=== PATIENT | male | born 1985 | race Caucasian/White ===

== ENCOUNTER 2024-11-01 15:36 | Inpatient (IN) | payer SELFPAY ==
[2024-11-01 16:02] VITALS: BMI 33.5
[2024-11-01] MEDS ORDERED: Ondansetron PF 4 MG/2 ML Vial IVP PRN (16:44)
[2024-11-01] MEDS ORDERED: Bisacodyl 5 MG TAB PO PRN (16:44)
[2024-11-01] MEDS ORDERED: Acetaminophen 650 MG Suppository PR PRN (16:44)
[2024-11-01] MEDS ORDERED: Senokot S 8.6-50 MG TAB PO PRN (16:44)
[2024-11-01] MEDS ORDERED: Acetaminophen 325 MG TAB PO PRN (16:44)
[2024-11-01] MEDS ORDERED: Bisacodyl 10 MG SUPP PR PRN (16:44)
[2024-11-01] MEDS ORDERED: Morphine 2 MG/ML VIAL SLOW IVP PRN ×2 (16:46→16:51)
[2024-11-01] MEDS ORDERED: Glucagon 1 MG/ML KIT IM PRN (17:06)
[2024-11-01] MEDS ORDERED: Dextrose 50% Abboject 50 ML SYRINGE SLOW IVP PRN (17:06)
[2024-11-01] MEDS ORDERED: Dextrose 5% in Water 1,000 ML IV PRN (17:06)
[2024-11-01] MEDS: Calcium Gluc 4.6 MEQ/10 ML (100 MG/ML) SLOW IVP ONE (17:36)
[2024-11-01] MEDS: CALCIUM GLUC 1 GM/NS 50 ML 1 GM in Premix 1 BAG IVPB SCH (17:37)
[2024-11-01] MEDS: traMADol HCl 50 MG TAB PO PRN (17:43)
[2024-11-01 19:04] LABS: Anion Gap 13 mmol/L (10-20); BUN (Urea Nitrogen) 48 mg/dL (8.9-20.6); Calc. Creatinine Clearance 52 mL/min (70-130); Calcium 9.1 mg/dL (7.8-10.44); Carbon Dioxide 24 mmol/L (22-29); Chloride 109 mmol/L (98-107); Estimated GFR 28; Glucose 115 mg/dL (70-105); Potassium 5.1 mmol/L (3.5-5.1); Sodium 141 mmol/L (136-145)
[2024-11-01] MEDS: Gabapentin 300 MG CAP PO SCH (20:21)
[2024-11-01] MEDS: Glimepiride 4 MG TAB PO SCH (20:22)
[2024-11-01] MEDS: Atorvastatin Calcium 40 MG TAB PO SCH (20:22)
[2024-11-01] MEDS: Heparin 5,000 UNITS/ML VIAL SC SCH (20:23)
[2024-11-01] MEDS ORDERED: Glimepiride 4 MG TAB PO SCH (21:00)
[2024-11-02 00:52] LABS: Amphetamine Not Detected (NotDetected); Barbiturates Screen Not Detected (NotDetected); Benzodiazepine Screen Not Detected (NotDetected); Cocaine Metabolite Screen Not Detected (NotDetected); Methadone Not Detected (NotDetected); Methamphetamine Not Detected (NotDetected); Opiate Screen Not Detected (NotDetected); Oxycodone Screen Not Detected (NotDetected); Phencyclidine (PCP) Not Detected (NotDetected); THC/Cannabinoid Screen Not Detected (NotDetected); Tricyclic Screen Not Detected (NotDetected)
[2024-11-02] MEDS: Albumin 25% 25 GM (100 mL) BOT IVPB SCH (01:00)
[2024-11-02 04:49] LABS: #Basophils 0.04 10x3/uL (0.0-0.2); %Basophils 0.5 % (0.0-1.0); %Eosinophils 3.6 % (0.0-10.0); %Lymphocytes 11.8 % (21.0-51.0); %Monocytes 7.6 % (0.0-10.0); %Neutrophils 76.1 % (42.0-75.0); Hematocrit 38.2 % (42.0-52.0); Hemoglobin 11.6 g/dL (14.0-18.0); Mean Corpuscular HGB CONC 30.4 g/dL (32.0-36.0); Mean Corpuscular Hemoglobin 25.2 pg (27.0-31.0); Mean Corpuscular Volume 82.9 fL (78.0-98.0); Platelet Count 197 10x3/uL (130-400); RBC Distribution Width 18.3 % (11.5-14.5); Red Blood Cell (RBC) Count 4.61 mill/uL (4.70-6.10)
[2024-11-02 05:03] LABS: Hemoglobin A1c 6.9 % (4.0-6.0)
[2024-11-02 05:28] LABS: ALT (SGPT) 14 U/L (8-55); AST (SGOT) 14 U/L (5-34); Albumin 3.6 g/dL (3.5-5.0); Alkaline Phosphatase 120 U/L (40-110); Anion Gap 14 mmol/L (10-20); BUN (Urea Nitrogen) 41 mg/dL (8.9-20.6); Bilirubin, Direct 0.4 mg/dL (0.1-0.3); Bilirubin, Total 0.7 mg/dL (0.2-1.2); Calc. Creatinine Clearance 54 mL/min (70-130); Carbon Dioxide 23 mmol/L (22-29); Cardiac Risk 2.3 (Less than 4.5); Chloride 109 mmol/L (98-107); Cholesterol 64 mg/dl (< 200 Desired); Estimated GFR 29; Glucose 54 mg/dL (70-105); HDL Cholesterol 28 mg/dL (>60 Neg Risk); LDL Cholesterol, Calculated 25 mg/dL; Magnesium 1.5 mg/dL (1.6-2.6); Potassium 4.8 mmol/L (3.5-5.1); Protein, Total 6.7 g/dL (6.0-8.3); Sodium 141 mmol/L (136-145); Triglycerides 53 mg/dL (Less than 150)
[2024-11-02] MEDS: Sertraline 100 MG TAB PO SCH (08:17)
[2024-11-02] MEDS: Folic Acid 1 MG TAB PO SCH (08:17)
[2024-11-02] MEDS: Allopurinol 100 MG TAB PO SCH (08:17)
[2024-11-02] MEDS: Cholecalciferol 1,000 UNITS (25 MCG) TAB PO SCH (08:17)
[2024-11-02] MEDS: Metoprolol Succinate XL 50 MG ER.TAB PO SCH (08:17)
[2024-11-02] MEDS: FLU (Fluarix Triv) TS24-25(6MOS UP)/PF 45 MCG/0.5 ML Syringe IM ONE (08:18)
[2024-11-02] MEDS: Insulin Lispro 100 UNIT/ML 10 ML VIAL SC PRN (11:29)
[2024-11-02] MEDS: Furosemide 20 MG (2 mL) VIAL SLOW IVP SCH (16:53)
[2024-11-02] MEDS: Magnesium 2 GM/50 ML(in water) 2 GM in Premix 1 BAG IVPB SCH (16:55)
[2024-11-03] MEDS: Calcitriol 0.25 MCG CAP PO SCH (08:05)
[2024-11-03 08:07] LABS: #Basophils 0.03 10x3/uL (0.0-0.2); %Basophils 0.5 % (0.0-1.0); %Eosinophils 4.2 % (0.0-10.0); %Lymphocytes 10.4 % (21.0-51.0); %Monocytes 7.7 % (0.0-10.0); %Neutrophils 76.7 % (42.0-75.0); Hematocrit 38.7 % (42.0-52.0); Hemoglobin 11.6 g/dL (14.0-18.0); Mean Corpuscular Hemoglobin 24.7 pg (27.0-31.0); Mean Corpuscular Volume 82.5 fL (78.0-98.0); Mean Platelet Volume 9.8 fL (7.4-10.4); Platelet Count 191 10x3/uL (130-400); Red Blood Cell (RBC) Count 4.69 mill/uL (4.70-6.10)
[2024-11-03 08:28] LABS: Anion Gap 16 mmol/L (10-20); BUN (Urea Nitrogen) 33 mg/dL (8.9-20.6); Calc. Creatinine Clearance 64 mL/min (70-130); Calcium 9.2 mg/dL (7.8-10.44); Carbon Dioxide 24 mmol/L (22-29); Chloride 106 mmol/L (98-107); Estimated GFR 36; Glucose 145 mg/dL (70-105); Magnesium 1.8 mg/dL (1.6-2.6); Potassium 4.5 mmol/L (3.5-5.1); Sodium 141 mmol/L (136-145)
[2024-11-03] MEDS: Furosemide 20 MG (2 mL) VIAL SLOW IVP SCH (11:25)
[2024-11-03] MEDS ORDERED: Furosemide 20 MG (2 mL) VIAL SLOW IVP SCH (14:00)
[2024-11-03] MEDS: Furosemide 40 MG (4 mL) VIAL SLOW IVP SCH (14:09)
[2024-11-04] MEDS: Calcium Carbonate 500 MG ChewTAB PO PRN (03:11)
[2024-11-04 04:58] LABS: #Basophils Less than 0.03 10x3/uL (0.0-0.2); %Basophils 0.3 % (0.0-1.0); %Eosinophils 4.8 % (0.0-10.0); %Monocytes 7.2 % (0.0-10.0); %Neutrophils 76.3 % (42.0-75.0); Hematocrit 41.3 % (42.0-52.0); Hemoglobin 12.4 g/dL (14.0-18.0); Mean Corpuscular Volume 83.3 fL (78.0-98.0); Mean Platelet Volume 9.8 fL (7.4-10.4); Platelet Count 200 10x3/uL (130-400); RBC Distribution Width 18.3 % (11.5-14.5); Red Blood Cell (RBC) Count 4.96 mill/uL (4.70-6.10)
[2024-11-04 05:24] LABS: Anion Gap 14 mmol/L (10-20); BUN (Urea Nitrogen) 36 mg/dL (8.9-20.6); Calc. Creatinine Clearance 71 mL/min (70-130); Calcium 9.4 mg/dL (7.8-10.44); Carbon Dioxide 22 mmol/L (22-29); Chloride 109 mmol/L (98-107); Estimated GFR 41; Glucose 163 mg/dL (70-105); Magnesium 1.6 mg/dL (1.6-2.6); Potassium 5.4 mmol/L (3.5-5.1); Sodium 140 mmol/L (136-145)
[2024-11-04] MEDS: Magnesium 2 GM/50 ML(in water) 2 GM in Premix 1 BAG IVPB SCH (14:44)
[2024-11-04] MEDS: Insulin Lispro 100 UNIT/ML 10 ML VIAL SC PRN (20:27)
[2024-11-05 05:26] LABS: #Basophils 0.03 10x3/uL (0.0-0.2); %Basophils 0.4 % (0.0-1.0); %Eosinophils 4.3 % (0.0-10.0); %Lymphocytes 10.1 % (21.0-51.0); %Monocytes 6.6 % (0.0-10.0); %Neutrophils 78.1 % (42.0-75.0); Hematocrit 41.6 % (42.0-52.0); Hemoglobin 12.6 g/dL (14.0-18.0); Mean Corpuscular HGB CONC 30.3 g/dL (32.0-36.0); Mean Corpuscular Hemoglobin 24.9 pg (27.0-31.0); Mean Corpuscular Volume 82.1 fL (78.0-98.0); Mean Platelet Volume 10.5 fL (7.4-10.4); Platelet Count 239 10x3/uL (130-400); RBC Distribution Width 18.2 % (11.5-14.5); Red Blood Cell (RBC) Count 5.07 mill/uL (4.70-6.10)
[2024-11-05 05:42] LABS: Anion Gap 13 mmol/L (10-20); BUN (Urea Nitrogen) 38 mg/dL (8.9-20.6); Calc. Creatinine Clearance 71 mL/min (70-130); Calcium 9.5 mg/dL (7.8-10.44); Carbon Dioxide 27 mmol/L (22-29); Chloride 105 mmol/L (98-107); Estimated GFR 41; Glucose 197 mg/dL (70-105); Magnesium 1.8 mg/dL (1.6-2.6); Potassium 4.6 mmol/L (3.5-5.1); Sodium 140 mmol/L (136-145)
[2024-11-05] MEDS: Empagliflozin 10 MG TAB PO SCH (08:38)
[2024-11-06 05:11] LABS: Anion Gap 15 mmol/L (10-20); BUN (Urea Nitrogen) 41 mg/dL (8.9-20.6); Calc. Creatinine Clearance 73 mL/min (70-130); Calcium 9.8 mg/dL (7.8-10.44); Carbon Dioxide 29 mmol/L (22-29); Chloride 102 mmol/L (98-107); Estimated GFR 42; Glucose 224 mg/dL (70-105); Potassium 4.6 mmol/L (3.5-5.1); Sodium 141 mmol/L (136-145)
[2024-11-06 11:39] VITALS: BP 138/90; TEMP 97.8
== END 2024-11-06 14:25 | disposition home or self-care (01) | DRG 683 ==
LOC: OBS 15:36 → OBSVTOIN 11-02 12:50
PROVIDERS: ADMIT Family Medicine; ATTEND Internal Medicine Critical Care Medicine
PROC: 30233J1 Transfusion of Nonautologous Serum Albumin into Peripheral Vein, Percutaneous Approach (ICD-10-PCS; principal; 2024-11-01)
DX: N17.9 Acute kidney failure, unspecified (principal); E87.20 Acidosis, unspecified; N50.89 Other specified disorders of the male genital organs; N04.9 Nephrotic syndrome with unspecified morphologic changes; N18.30 Chronic kidney disease, stage 3 unspecified; I10 Essential (primary) hypertension; N05.9 Unspecified nephritic syndrome with unspecified morphologic changes; E83.42 Hypomagnesemia; E11.40 Type 2 diabetes mellitus with diabetic neuropathy, unspecified; N28.1 Cyst of kidney, acquired; E78.5 Hyperlipidemia, unspecified; K80.20 Calculus of gallbladder without cholecystitis without obstruction; E87.5 Hyperkalemia; Z86.718 Personal history of other venous thrombosis and embolism; Z88.8 Allergy status to other drugs, medicaments and biological substances; Z91.048 Other nonmedicinal substance allergy status; Z91.148 Patient's other noncompliance with medication regimen for other reason
CPT/HCPCS: 36415; 36416; 71045; 80048; 80061; 80076; 80306; 82570; 83036; 83735; 83880; 84156; 84443; 85025; 86850; 86900; 86901; 90656; 93306; 93970; 96372; 96374; 96375; 96376; G0378; J0613; J1644; J1815; J1940; J3475; P9047